=== PATIENT | male | born 1990 | race Caucasian/White ===

== ENCOUNTER 2018-10-07 00:03 | Emergency (ER) | payer SELFPAY ==
[~2018-10-07] VITALS: Ht 182.9 cm; Wt 82.0 kg
[2018-10-07 00:13] VITALS: BP 120/85
[2018-10-07 02:37] LABS: HEPATITIS B SURFACE AB 14.4 mIU/mL
[2018-10-07 02:48] LABS: HEPATITIS B SURFACE ANTIGEN NEGATIVE
[2018-10-08 04:09] LABS: HIV SCREEN 4G Non Reactive (Non Reactive)
== END 2018-10-07 01:00 | disposition home or self-care (01) ==
LOC: ER 00:03
DX: Z77.21 Contact with and (suspected) exposure to potentially hazardous body fluids (principal); R04.2 Hemoptysis
CPT/HCPCS: 36415; 87389; 99283